=== PATIENT | female | born 1990 | race Caucasian/White ===

== ENCOUNTER 2024-07-21 17:56 | Emergency (ER) | payer OTHER, SELFPAY ==
[2024-07-21 18:06] VITALS: BP 109/91; PULSE 77; RESP 16; TEMP 36.8; O2SAT 100
--- NOTE | 2024-07-21 18:06 | ED_ITS ---
HPI - Ear Problem General Chief complaint: Ear Stated complaint: Right Ear Pain Time Seen by Provider: 07/21/24 18:31 Source: patient, RN notes reviewed and old records reviewed Mode of arrival: ambulatory Limitations: no limitations History of Present Illness HPI Narrative: 34-year-old female who presents to [facility] with complaints of right ear pain which started 2 days ago and also some sinus pressure with drainage for the past 4 days which she assumed was allergies. Patient report that she has been taking Mucinex and also some Tylenol for her ear pain. MD Complaint: ear pain and other (sinus drainage and pressure) Location: right ear Duration: constant Severity: moderate Discharge from ear: Reports no Treatment prior to arrival: other (mucinex and Tylenol) Related Data Home Medications ?Medication ?Instructions ?Recorded ?Confirmed ?Last Taken ?Type buspirone 15 mg tablet mg 07/21/24 Unknown History semaglutide 07/21/24 Unknown History venlafaxine 150 mg mg PO 07/21/24 Unknown History capsule,extended release 24 hr Allergies Allergy/AdvReac Type Severity Reaction Status Date / Time Penicillins Allergy Intermediate Hives Verified 07/21/24 18:08 Review of Systems Review of Systems: CONSTITUTIONAL: Denies malaise, chills, sweats, or fever. EYES: Denies visual changes, redness, or discharge. ENT: Reports rhinorrhea, congestion, sinus pressure, right otalgia and no sore throat. CARDIOVASCULAR: Denies chest pain, palpitations, or edema. RESPIRATORY: Reports occasional cough.? Denies dyspnea. GASTROINTESTINAL: Denies abdominal pain, nausea, vomiting, diarrhea SKIN: Denies rash or itching. MUSCULOSKELETAL: Denies myalgia. NEUROLOGIC: Denies headache. All systems reviewed & are unremarkable except as noted in HPI and below [facility] Past Medical History Medical History (Updated 07/22/24 @ 15:47 by Merlene Hatch NP) Anxiety Seasonal allergies Ear infection Social History Social History (Updated 07/22/24 @ 15:44 by Merlene Hatch NP) Smoking status: Former smoker Additional smoking assessment comments: Quit 2 years ago Alcohol intake: current Alcohol use details: social Substance use type: does not use Living arrangements: with family Gender identity (if verbalized by the patient): Female Comments At time of signature, agree with nursing past medical, surgical, social and family history. There is no relevant family history pertinent to the presenting complaint Exam Narrative: GENERAL: Well-appearing, well-nourished, and in no acute distress. HEAD: Normocephalic EYES: PERRLA, conjunctivae clear ENT: Nares clear, turbinates edematous and erythematous, clear discharge some sinus pressure,. Mucous membranes moist Right TM red and bulging, Left. TM dorothy y hoffmann with dull light reflex bilaterally; no tragal tenderness. Oropharynx erythematous without lesions. Tonsils not enlarged and without exudate, no drooling, no hoarseness, no trismus, uvula midline. NECK: Supple. No lymphadenopathy CHEST: Clear to auscultation, breath sounds equal. No wheezing, rhonchi, rales, or stridor. No respiratory distress, speaks in full sentences. SAO2 100% on room air HEART: Regular rate and rhythm. No murmur heard. SKIN: Warm, dry, no rash. NEURO: Alert and oriented x3. PSYCH: Normal mood and affect Course Course Emergency Course: Patient is aware of diagnosis, understands and agrees to treatment plan.? Anticipatory guidance given.? Patient agrees to follow-up as directed and is aware of reasons to seek care at the emergency department. Portions of this record may have been created with voice recognition software Level of Care: Express Care Visit Vital Signs Vital signs: Vital Signs Temperature 36.8 C 07/21/24 18:06 Pulse Rate 77 07/21/24 18:06 Respiratory Rate 16 07/21/24 18:06 Blood Pressure 109/91 H 07/21/24 18:06 Pulse Oximetry 100 07/21/24 18:06 Oxygen Delivery Room Air 07/21/24 18:06 Temperature 36.8 C 07/21/24 18:06 Pulse Rate 77 07/21/24 18:06 Respiratory Rate 16 07/21/24 18:06 Blood Pressure 109/91 H 07/21/24 18:06 Pulse Oximetry 100 07/21/24 18:06 Oxygen Delivery Room Air 07/21/24 18:06 Reviewed Medical Decision Making Differential Diagnosis Differential Diagnosis: URI, otitis media, allergic rhinitis, sinusitis Medical Records Medical records reviewed: Yes I reviewed the external patient's medical records. Vital Signs Vital Signs: Vital Signs Temperature 36.8 C 07/21/24 18:06 Pulse Rate 77 07/21/24 18:06 Respiratory Rate 16 07/21/24 18:06 Blood Pressure 109/91 H 07/21/24 18:06 Pulse Oximetry 100 07/21/24 18:06 Oxygen Delivery Room Air 07/21/24 18:06 Temperature 36.8 C 07/21/24 18:06 Pulse Rate 77 07/21/24 18:06 Respiratory Rate 16 07/21/24 18:06 Blood Pressure 109/91 H 07/21/24 18:06 Pulse Oximetry 100 07/21/24 18:06 Oxygen Delivery Room Air 07/21/24 18:06 reviewed Critical Care Time Critical Care Time Critical Care Time: No Discharge Plan Discharge Clinical Impression: Otitis media Qualifiers: Otitis media type: serous Chronicity: acute Laterality: right Recurrence: not specified as recurrent Qualified Code(s): H65.01 - Acute serous otitis media, right ear Patient Disposition: Home Condition: Stable Instructions: Antibiotic Form, Ear Infection (GEN) Additional Instructions: Increase fluids especially juices and water Agsb-[id number] cough and cold medicine of your choice for your symptoms Zyrtec Claritin or Thelma daily Tylenol or ibuprofen for any fever pain Recommend decongestant daily heat to the face 20-30 minutes 4-6 times a day for pain Salt water gargles, throat lozenges or throat sprays as desired Antibiotic as directed--finished the medication If your symptoms persist, change or worsen significantly before you can contact your personal physician then please, without delay, go to the emergency depart ment for further evaluation. Follow-up with PCP in 7-10 days or sooner if needed Patient Language: Mongolian Prescriptions: New azithromycin 250 mg tablet See Rx Instructions .ROUTE .COMPLEX Qty: 6 0RF Rx Instructions: For 250 mg dose pack: take 500 mg today (day 1), then 250 mg for 4 days (days 2-5) No Action venlafaxine 150 mg capsule,extended release 24hr PO buspirone 15 mg tablet semaglutide Follow-up/Referrals: PHYSICIAN,GLASS TUBE BENDER [Primary Care Provider] - Time of Disposition: 18:43 Quality [place] Coma Scale Eyes: Open Verbal: Oriented and Alert Motor: Follows Commands Matt Coma Total Score: 15
--- OUTSIDE RECORDS SUMMARY | 2024-07-21 18:25 | XMS_ITS ---
Author Organization [facility] Address [address] [place] [address] Care Team Providers Care Lens Matcher Name Role Phone Lenore Gustafson Primary Care Provider REASON FOR VISIT PHA Draw Encounters Encounter Location Date Provider Diagnosis Paco Lopez [address] [place] [address] 10/31/2023 Lenore Gustafson Plan Of Treatment Next Appt Details Provider Name:Harriett Cochran, 07/22/2024 08:30:00 AM, [address], [place], [address], Progress Notes * PIERO BARRIOS MDOB:[birth year] (34 yo F)Acc No.[id number]:10/31/2023 PHA Draw Note Patient: PIERO LOCO Provider: Willie Gustafson DO :1990 A ge:33 Y S ex:Female Date:10/31/2023 External Visit ID:[id number] Address:[address] [place] [address] [id number] Subjective: * Chief Complaints: * 1 . PHA Draw. * Medical History: Objective: * Vitals: Assessment: Plan: * Treatment: * * Electronic signature of Shanell Gustafson DO on 07/21/2024 at 06:24 PM CDT Sign off status: Pending * Provider: Willie Gustafson DO Date: 0 10/31/2023 Generated for Michela null/Temo/Ashleysmitting on: 0 07/21/2024 06:24 PM CDT
--- OUTSIDE RECORDS SUMMARY | 2024-07-21 18:25 | XMS_ITS | Clinical Summary ---
Author Organization [facility] Address [address] [place] [address] Care Team Providers Care Safety Glass Installer Name Role Phone Fred Moon DO Primary Care Provide r Source Comments [facility],non-owned Affiliates and Associated Physician Practices is amultiple site organization consisting of ambulatory clinics and hospital sitesin [place], [place], [place] and [place]. This disclosure is being madepursuant to the Care Everywhere program and may not contain all information available regarding this patient. Last updated 17.[facility] [employer] Allergies Active Allergy Reactions Criticality Noted Date Comments Penicillins Urticaria Medium 11/04/2016 Medications * Be aware that medications may not be up to date on this document. Alwaysverify current medications with the patient. spironolactone (ALDACTONE) 50 MG tablet Take 50 mg by mouth once daily 03/27/2018 Active fluticasone propionate (FLONASE) 50 MCG/ACT nasal spray [place] 2 sprays into the nose once daily Active azithromycin (ZITHROMAX) 250 MG tablet Take two tablets on day one then one tablet days two through five. 6 tablet 09/05/2018 Active Active Problems Problem Noted Date Diagnosed Date LISA III (cervical intraepith elial neoplasia grade III) with severe dysplasia 09/04/2017 Overview (09/05/2018): Overview: ECC positive for dysplasia High grade squamous intraepithelial cervical dys plasia 08/29/2017 Low grade squamous intraepit h lesion on cytologic smear cervix (lgsil) 06/25/2017 Vasovagal episode 11/10/2016 HELEN (generalized anxiety disorder) 11/10/2016 Borderline personality disorder 11/10/2016 Social History Tobacco Use Types Packs/Day Years Used Date Smoking Tobacco: Never Assessed Comments No Sex and Gender Information Value Date Recorded Sex Assigned at Not on file Legal Sex Female 6:58 PM CDT Gender Identity Not on file Sexual Orientation Not on file Last Filed Vital Signs Vital Sign Reading Time Taken Comments Blood Pressure 107/80 09/05/2018 7:28 PM CDT Pulse 75 09/05/2018 7:28 PM CDT Temperature 36.6 C (97.9 F) 09/05/2018 7:28 PM CDT Respiratory Rate 18 09/05/2018 7:28 PM CDT Oxygen Saturation 98% 09/05/2018 7:28 PM CDT Inhaled Oxygen Concentration - - Weight 80.7 kg (178 lb) 09/05/2018 7:28 PM CDT Height 157.5 cm (5' 2 ) 09/05/2018 7:28 PM CDT Body Mass Index 32.56 09/05/2018 7:28 PM CDT Plan of Treatment Health Maintenance Due Date Last Done Comments HIV SCREENING 06/15/2003 HEPATITIS C SCREENING 06/10/2006 DTAP/TDAP/TD VACCINES (1 - Tdap) 06/15/2007 HEPATITIS B VACCINE (1 of 3 - 19+ 3-dose series) 06/15/2007 COVID-19 VACCINE (1 - 2023-2 5 season) 2023 DEPRESSION SCREENING 04/02/2024 INFLUENZA VACCINE (Season Ended) 2024 ZOSTER VACCINE (1 of 2) 2038 HIB VACCINE Aged Out No longer eligi ble based on patient's age to complete this topic HPV VACCINE Aged Out No longer eligi ble based on patient's age to complete this topic MENINGOCOCCAL (Group B) VACC INE SHARED DECISION-MAKING Aged Out No longer eligibl e based on patient's age to complete this topic MENINGOCOCCAL GROUPS A/C/Y/W VACCINE Aged Out No longer eligible b ased on patient's age to complete this topic PNEUMOCOCCAL VACCINE Aged Out No long er eligible based on patient's age to complete this topic Insurance [employer] Care Teams Safety Glass Installer Relationship Specialty [place] [address] [place] [address] [place] [id number] PCP - General Family Medicine 09/05/18
--- OUTSIDE RECORDS SUMMARY | 2024-07-21 18:25 | XMS_ITS ---
Author Organization [facility] Address [address] [place] [address] Care Team Providers Care Pool Lifeguard Name Role Phone Lenore Gustafson Primary Care Provider REASON FOR VISIT PHA Draw Encounters Encounter Location Date Provider Diagnosis Paco Lopez [address] [place] [address] 11/06/2023 Lenore Gustafson Plan Of Treatment Next Appt Details Provider Name:Harriett Cochran, 07/22/2024 08:30:00 AM, [address], [place], [address], Progress Notes * PIERO BARRIOS MDOB:[birth year] (34 yo F)Acc No.[id number]:11/06/2023 PHA Draw Note Patient: PIERO LOCO Provider: Willie Gustafson DO :1990 A ge:33 Y S ex:Female Date:11/06/2023 External Visit ID:[id number] Address:[address] [place] [address] [facility] Subjective: * Chief Complaints: * 1 . PHA Draw. * Medical History: Objective: * Vitals: Assessment: Plan: * Treatment: * * Electronic signature of Shanell Gustafson DO on 07/21/2024 at 06:25 PM CDT Sign off status: Pending * Provider: Willie Gustafson DO Date: 0 11/06/2023 Generated for Michela null/Temo/Ashleysmitting on: 0 07/21/2024 06:25 PM CDT
--- OUTSIDE RECORDS SUMMARY | 2024-07-21 18:25 | XMS_ITS | Encounter Summary ---
Author Organization [facility] Address [address] [place] [address] Care Team Providers Care Chemical Handler Name Role Phone Unavailable Primary Care Provider Unavailabl e Prior Encounters Date Type Department Care Team Description 04/21/2019 Converted 13x Documents [facility] [address] [place] [address] <No scans attached> Plan of Treatment Not on file Visit Diagnoses Not on file
--- OUTSIDE RECORDS SUMMARY | 2024-07-21 18:25 | XMS_ITS | Referral Summary ---
Author Organization [address] Address [address] [place] [address] Care Team Providers Care Shrub Grower Name Role Phone Unavailable Primary Care Provider Unavailabl e Allergies Active Allergy Reactions Criticality Noted Date Comments Penicillins Hives,Itching,Urticaria High 10/22/2004 Medications spironolactone (ALDACTONE) 50 mg tablet 3 Active buPROPion XL (WELLBUTRIN XL) 150 mg 24 hr tablet Take 1 tablet (150 mg total) by mouth every morning 3 Active busPIRone (BUSPAR) 5 mg tablet Take 1 tablet (5 mg total) by mouth 2 (two) times a day 3 Active fluticasone propionate (FLONASE) 50 mcg/actuation nasal spray Administer 2 sprays into affected nostril(s) daily Active Estarylla 0.25-35 mg-mcg per tablet Take 1 tablet by mouth daily 3 Active Active Problems Problem Noted Date Diagnosed Date LISA III (cervical intraepith elial neoplasia grade III) with severe dysplasia 09/04/2017 08/22/2022 Overview (08/22/2022): Overview: ECC positive for dysplasia ECC positive for dysplasia Low grade squamous intraepit h lesion on cytologic smear cervix (lgsil) 06/25/2017 08/22/2022 Borderline personality disorder 11/10/2016 08/22/2022 HELEN (generalized anxiety disorder) 11/10/2016 08/22/2022 Vasovagal episode 11/10/2016 08/22/2022 Social History Tobacco Use Types Packs/Day Years Used Date Smoking Tobacco: Never Assessed Personal Safety Answer Date Recorded Getting School Help Needed Not on file 06/02 Comments Unknown Sex and Gender Information Value Date Recorded Sex Assigned at Not on file 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
--- OUTSIDE RECORDS SUMMARY | 2024-07-21 18:25 | XMS_ITS | Clinical Summary ---
Author Organization [facility] Address [address] [place] [address] Care Team Providers Care Chemist Biological Name Role Phone Unavailable Primary Care Provider Unavailabl e Social History Tobacco Use Types Packs/Day Years Used Date Smoking Tobacco: Never Assessed Comments Unknown Sex and Gender Information Value Date Recorded Sex Assigned at Not on file Legal Sex Female 12:53 AM PST Gender Identity Not on file Sexual Orientation Not on file Plan of Treatment Not on file
--- OUTSIDE RECORDS SUMMARY | 2024-07-21 18:25 | XMS_ITS | Patient Health Record ---
Author Organization [facility] Address [address] [address] [place] [address] Care Team Providers Care Research Professional Name Role Phone Forrest Gustafsonl Primary Care Provider Allergies Allergen (clinical drug ingredient) Drug/Non Drug Allergy documented on EMR Reaction Allergy Type Onset Date Status Penicillin hives Drug Allergy Active Reason For Referral No Information Medications Medication SIG (Take, Route, Fr equency, Duration) Notes Start Date End Date Status Adderall 20 MG 1 tablet Orally once a day Active Venlafaxine HCl 75 MG 1 tablet with food Orally Once a day Active Social History Tobacco Use: Social History Observation Description Date Details (start date - stop date) Never Smoker NA - NA Tobacco Control Question Answer Notes Tobacco use: Nonsmoker Problems Problem Type SNOMED Code ICD Code Onset Dates Problem Status W/U Status Risk Notes Problem 41971765 Generalized anxiety disorder (F41.1) Active confirmed Problem 229312362 Attention deficit disorder (ADD) in adult (F98.8) Active confirmed Vital Signs Heart Rate 95 /min 09/05/2023 Temperature 98.8 degrees Fahrenheit 09/05/2023 Respiratory Rate 16 /min 09/05/2023 Height-cm 156.85 cm 09/05/2023 Oximetry 96 % 09/05/2023 Blood pressure diastolic 94 mm Hg 09/05/2023 Weight-kg 81.56 kg 09/05/2023 Height 61.75 in 09/05/2023 Blood pressure systolic 129 mm Hg 09/05/2023 Weight 179.8 lbs 09/05/2023 BMI 33.15 kg/m2 09/05/2023 Encounters Encounter Location Date Provider Diagnosis [facility] [address] [place] [address] 09/05/2023 Lenore Gustafson Mass of upper outer quadrant of left breast N63.21 ; Physical exam Z00.00 ; Generalized anxiety disorder F41.1 and Attention deficit disorder (ADD) in adult F98.8 Assessments Encounter Date Diagnosis (ICD Code) Assessment Notes Treatment Notes Treatment Clinical Notes Section Notes 09/05/2023 Physical exam (ICD-10 - Z00.00) PHA advised 09/05/2023 Mass of upper outer quadrant of left breast (ICD-10 - N63.21) Discussed that this is likely benign fibrocystic change but should be evaluated with imaging. Schedule with [facility] where she had her previous study for comparison. 09/05/2023 Generalized anxiety disorder (ICD-10 - F41.1) 09/05/2023 Attention deficit disorder (ADD) in adult (ICD-10 - F98.8) Plan Of Treatment Pending Test Test Name Order Date Mammogram : Screening, Bilateral 024 Mammogram : Diagnostic, Unilateral 09/04 Next Appt Details Provider Name:Harriett Cochran, 07/22/2024 08:30:00 AM, [address] [facility] [address], [place], [address], Insurance Providers Payer Name Payer Address Payer Phone Subscriber Number Group Number Insured Name Patient Relationship to Insured Coverage Start Date Coverage End Date SSD [employer] PPO [address] [place] [address] [id number] PIERO BARRIOS Self - patient is the insured 3 SSD A[employer] PPO [address] [place] [address] [id number] PIERO BARRIOS Self - patient is the insured 3 3 Medical (General) History Medical History History ICD Code HISTORY: Anxiety HISTORY: Depression Surgical History Surgery Date(Month/Year) [facility] 2003
--- OUTSIDE RECORDS SUMMARY | 2024-07-21 18:25 | XMS_ITS ---
Author Organization [facility] Address [address] [place] [address] Care Team Providers Care Grinding Supervisor Name Role Phone Lenore Gustafson Primary Care Provider [phone] REASON FOR VISIT PHA Draw Encounters Encounter Location Date Provider Diagnosis Paco Lopez [address] [place] [address] 11/06/2023 Lenore Gustafson Plan Of Treatment Next Appt Details Provider Name:Harriett Cochran, 07/22/2024 08:30:00 AM, [address], [place], [address], Progress Notes * PIERO BARRIOS MDOB:[birth year] (34 yo F)Acc No.[id number]:11/06/2023 PHA Draw Note Patient: PIERO LOCO Provider: Willie Gustafson DO :1990 A ge:33 Y S ex:Female Date:11/06/2023 External Visit ID:[id number] Address:[address] [place] [address] [facility] Subjective: * Chief Complaints: * 1 . PHA Draw. * Medical History: Objective: * Vitals: Assessment: Plan: * Treatment: * * Electronic signature of Shanell Gustafson DO on 07/21/2024 at 06:25 PM CDT Sign off status: Pending * Provider: Willie Gustafson DO Date: 0 11/06/2023 Generated for Michela null/Temo/Ashleysmitting on: 0 07/21/2024 06:25 PM CDT
--- OUTSIDE RECORDS SUMMARY | 2024-07-21 18:25 | XMS_ITS | Clinical Summary ---
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 Gender Identity Not on file Sexual Orientation Not on file Plan of Treatment Health Maintenance Due Date Last Done Comments Cervical Cancer Screening 1988 Depression Screening 1988 Hepatitis C Screening 1988 DTaP/Tdap/Td Vaccine (1 - Tdap) 06/15/1999 Varicella Vaccines (1 of 2 - 13+ 2-dose series) 2001 Hepatitis B Screening 2006 Regular Well Visit/Exam 18-64 2006 Covid-19 Vaccine (2023-2 5 season) 2023 03/03/2021, 06/10/2020, 05/13/2020 Influenza Vaccine (#1) 2023 9, 01/10/2016, 12/28/2014 HPV Vaccines Aged Out No longer eligi ble based on patient's age to complete this topic Pneumococcal vaccine <65 Aged Out No longer eligible based on patient's age to complete this topic [facility]
== END 2024-07-21 18:48 | disposition home or self-care (01) ==
PROVIDERS: Emergency Provider Registered Nurse
DX: H65.01 Acute serous otitis media, right ear (principal); Z87.891 Personal history of nicotine dependence
CPT/HCPCS: 99213; G0463

== ENCOUNTER 2024-11-03 08:48 | Emergency (ER) | payer OTHER, SELFPAY ==
[2024-11-03 08:56] VITALS: BP 102/82; PULSE 105; RESP 20; TEMP 37.4; O2SAT 98
--- OUTSIDE RECORDS SUMMARY | 2024-11-03 08:56 | XMS_ITS | Referral Summary ---
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
--- OUTSIDE RECORDS SUMMARY | 2024-11-03 08:56 | XMS_ITS | Clinical Summary ---
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 Gender Identity Not on file Sexual Orientation Not on file Plan of Treatment Health Maintenance Due Date Last Done Comments Cervical Cancer Screening 1988 Depression Screening 1988 Hepatitis C Screening 1988 DTaP/Tdap/Td Vaccine (1 - Tdap) 06/15/1999 Varicella Vaccines (1 of 2 - 13+ 2-dose series) 2001 Hepatitis B Screening 2006 Regular Well Visit/Exam 18-64 2006 HPV Vaccines (1 - 3-dose SCD M series) 06/15/2015 Covid-19 Vaccine (4 - 2023-2 5 season) 2023 03/03/2021, 06/10/2020, 05/13/2020 Influenza Vaccine (#1) 2024 9, 01/10/2016, 12/28/2014 Pneumococcal vaccine <65 Aged Out No longer eligible based on patient's age to complete this topic Insurance [facility]
--- OUTSIDE RECORDS SUMMARY | 2024-11-03 08:56 | XMS_ITS | Patient Health Record ---
Author Organization [facility] Address [address] [place] [address] [address] [place] [address] Care Team Providers Care Tool Marker Name Role Phone Lenoer Gustafson Primary Care Provider Harriett Cochran Unavailable [phone] Allergies Allergen (clinical drug ingredient) Drug/Non Drug [...] Problem Status W/U Status Risk Notes Problem [id number] Generalized anxiety disorder (F41.1) Active confirmed Problem 399625611 Attention deficit disorder (ADD) in adult (F98.8) Active confirmed Plan Of Treatment No Information Insurance Providers Payer Name Payer Address Payer Phone Subscriber Number Group Number Insured Name Patient Relationship to Insured Coverage Start Date Coverage End Date SSD [employer] PPO [address] [place] [address] [id number] PIERO BARRIOS Self - patient is the insured 3 SSD [employer] PPO [address] [place] [address] [id number] DENISPIERO GARCIA Self - patient is the insured 3 3 Medical (General) History Medical History History ICD Code HISTORY: Anxiety HISTORY: Depression Surgical History Surgery Date(Month/Year) Gallbladder 2004
--- OUTSIDE RECORDS SUMMARY | 2024-11-03 08:57 | XMS_ITS ---
Author Organization [facility] Address [address] [place] [address] Care Team Providers Care Software Engineer Developer Name Role Phone Lenore Gustafson Primary Care Provider Harriett Cochran [phone] REASON FOR VISIT Ear Encounters Encounter Location Date Provider Diagnosis Paco Lopez [address] [facility] [address] [place] [address] 07/22/2024 Harriett Cochran Plan Of Treatment No Information Progress Notes * PIERO BARRIOS MDOB:[birth year] (34 yo F)Acc No.[id number]:07/22/2024 Progress Note - Acute Patient: Nuris GENTILE PIERO Sanjuana Provider: Willie Cochran MD :1990 A ge:34 Y S ex:Female Date:07/22/2024 External Visit ID:[id number] Address:[address] [place] [address] [address] [facility] Pcp:Lenore Gustafson Subjective: * Chief Complaints: * 1 . Ear. * Medical History: Objective: * Vitals: Assessment: Plan: * Treatment: * * Electronic signature of Harriett Cochran MD on 11/03/2024 at 08:56 AM CDT Sign off status: Pending * Provider: Willie Cochran MD Date: 07/22/2024 Generated for Printi ng/Faxing/eTransmitting on: 0 11/03/2024 08:56 AM CDT
--- OUTSIDE RECORDS SUMMARY | 2024-11-03 08:57 | XMS_ITS ---
Author Organization [facility] Address [address] [facility] [address] [place] [address] Care Team Providers Care Government Gauger Name Role Phone Lenore Gustafson Primary Care Provider REASON FOR VISIT PHA Draw Encounters Encounter Location Date Provider Diagnosis Paco Lopez [address] [facility] [address] [place] [address] 11/06/2023 Lenore Gustafson Plan Of Treatment No Information Progress Notes * PIERO BARRIOS MDOB:[birth year] (34 yo F)Acc No.[id number]:11/06/2023 PHA Draw Note Patient: Nuris GENTILE PIERO Sanjuana Provider: Willie Gustafson DO :1990 A ge:33 Y S ex:Female Date:11/06/2023 External Visit ID:[id number] Address:[facility] [address] [facility] Subjective: * Chief Complaints: * 1 . PHA Draw. * Medical History: Objective: * Vitals: Assessment: Plan: * Treatment: * * Electronic signature of Shanell Gustafson DO on 11/03/2024 at 08:56 AM CDT Sign off status: Pending * Provider: Willie Gustafson DO Date: 11/06/2023 Generated for Michela null/Temo/eTmichiitting on: 11/03/2024 08:56 AM CDT
--- OUTSIDE RECORDS SUMMARY | 2024-11-03 08:57 | XMS_ITS | Clinical Summary ---
Author Organization [facility] Address [address] [facility] [place] [address] Care Team Providers Care Top Cleaner Name Role Phone Fred Moon DO Primary Care Provide r Source Comments [facility],non-owned Affiliates and Associated Physician Practices is amultiple site organization consisting of ambulatory clinics and hospital sitesin [place], [place] and [place]. This disclosure is being madepursuant to the Care Everywhere program and may not contain all information available regarding this patient. Last updated 17.[facility] [employer] Allergies Active Allergy Reactions Criticality Noted Date Comments Penicillins Urticaria Medium 11/04/2016 Medications * Be aware that medications may not be up to date on this document. Alwaysverify current medications with the patient. spironolactone (ALDACTONE) 50 MG tablet Take 50 mg by mouth once daily 03/27/2018 Active fluticasone propionate (FLONASE) 50 MCG/ACT nasal spray [place] 2 sprays into the nose once daily [...] 7:28 PM CDT Height 157.5 cm (5' 2) 09/05/2018 7:28 PM CDT Body Mass Index 32.56 09/05/2018 7:28 PM CDT Plan of Treatment Health Maintenance Due Date Last Done Comments HIV SCREENING 06/15/2003 HEPATITIS C SCREENING 06/10/2006 DTAP/TDAP/TD VACCINES (1 - Tdap) 06/15/2007 HEPATITIS B VACCINE (1 of 3 - 19+ 3-dose series) 06/15/2007 HPV VACCINE (1 - 3-dose SCDM series) 06/15/2015 COVID-19 VACCINE (1 - 2023-2 5 season) 2023 DEPRESSION SCREENING 04/02/2024 INFLUENZA VACCINE (#1) 2024 ZOSTER VACCINE (1 of 2) 2038 [...] patient's age to complete this topic Insurance [id number] [place] [id number] [employer] Care Teams Top Cleaner Relationship Specialty Start Date End Date Fred Moon DO [address] [place] [address] [place] [phone] PCP - General Family Medicine 09/05/18
--- OUTSIDE RECORDS SUMMARY | 2024-11-03 08:57 | XMS_ITS ---
Author Organization [facility] Address [address] [facility] [address] [place] [address] Care Team Providers Care Metal Machinist Name Role Phone Lenore Gustafson Primary Care Provider REASON FOR VISIT PHA Draw Encounters Encounter Location Date Provider Diagnosis Paco Lopez [address] [facility] [address] [place] [address] 11/06/2023 Lenore Gustafson Plan Of Treatment No Information Progress Notes * PIERO BARRIOS MDOB:[birth year] (34 yo F)Acc No.[id number]:11/06/2023 PHA Draw Note Patient: Nuris GENTILE PIERO Sanjuana Provider: Willie Gustafson DO :1990 A ge:33 Y S ex:Female Date:11/06/2023 External Visit ID:[id number] Address:[facility] [address] [facility] Subjective: * Chief Complaints: * 1 . PHA Draw. * Medical History: Objective: * Vitals: Assessment: Plan: * Treatment: * * Electronic signature of Shanell Gustafson DO on 11/03/2024 at 08:56 AM CDT Sign off status: Pending * Provider: Willie Gustafson DO Date: 11/06/2023 Generated for Michela null/Temo/eTmichiitting on: 11/03/2024 08:56 AM CDT
--- OUTSIDE RECORDS SUMMARY | 2024-11-03 08:57 | XMS_ITS | Encounter Summary ---
Author Organization [facility] Address [address] [place] [address] Care Team Providers Care Customs Compliance Specialist Name Role Phone Unavailable Primary Care Provider Unavailabl e Prior Encounters Date Type Department Care Team Description 04/21/2019 Converted 13x Documents [facility] [address] [facility] [place] [address] <No scans attached> Plan of Treatment Not on file Visit Diagnoses Not on file
--- OUTSIDE RECORDS SUMMARY | 2024-11-03 08:57 | XMS_ITS | Clinical Summary ---
Author Organization [facility] Address [address] [place] [address] Care Team Providers Care Automobile Travel Club Counselor Name Role Phone Unavailable Primary Care Provider [...]
--- NOTE | 2024-11-03 09:15 | ED_ITS ---
HPI - URI/Sore Throat General Chief Complaint: Upper Respiratory Infection Stated Complaint: throat Time Seen by Provider: 11/03/24 09:16 Source: patient and RN notes reviewed Mode of arrival: ambulatory Limitations: no limitations History of Present Illness HPI Narrative: 34-year-old female presents with concern for sore throat, cough for 2 days. Reports her son's daycare has strep and voul-hwwc-vpkpu going around. She reports she has been using DayQuil, NyQuil, Benadryl without relief. She denies fever, aches, chills, sweats. MD elicited complaint: sore throat Related Data Home Medications ?Medication ?Instructions ?Recorded ?Confirmed ?Last Taken ?Type buspirone 15 mg tablet mg 07/21/24 Unknown History semaglutide 07/21/24 Unknown History venlafaxine 150 mg mg PO 07/21/24 Unknown History capsule,extended release 24 hr Allergies Allergy/AdvReac Type Severity Reaction Status Date / Time Penicillins Allergy Intermediate Hives Verified 07/21/24 18:08 Review of Systems Review of Systems: CONSTITUTIONAL: Denies malaise, chills, sweats, or fever. EYES: Denies visual changes, redness, or discharge. ENT: Reports rhinorrhea, congestion, and sore throat. CARDIOVASCULAR: Denies chest pain, palpitations, or edema. RESPIRATORY: Reports cough. Denies dyspnea. GASTROINTESTINAL: Denies abdominal pain, nausea, vomiting, diarrhea SKIN: Denies rash or itching. MUSCULOSKELETAL: Denies myalgia. NEUROLOGIC: Denies headache. All systems reviewed & are unremarkable except as noted in HPI and below PMFSH Past Medical History Medical History (Updated 11/03/24 @ 09:21 by Crystal Hartmann NP) Anxiety Seasonal allergies Ear infection Social History Social History (Updated 07/22/24 @ 15:44 by Merlene Hatch NP) Smoking status: Former smoker Additional smoking assessment comments: Quit 2 years ago Alcohol intake: current Alcohol use details: social Substance use type: does not use Living arrangements: with family Gender identity (if verbalized by the patient): Female Comments At time of signature, agree with nursing past medical, surgical, social and family history. There is no relevant family history pertinent to the presenting complaint Exam Narrative: GENERAL: Well-appearing, well-nourished, and in no acute distress. HEAD: Normocephalic EYES: PERRLA, conjunctivae clear ENT: Nares clear. Mucous membranes moist. TM pearly hoffmann with dull light reflex bilaterally; no tragal tenderness. Oropharynx erythematous without lesions. Tonsils not enlarged and without exudate, no drooling, no hoarseness, no trismus, uvula midline. NECK: Supple. No lymphadenopathy CHEST: Clear to auscultation, breath sounds equal. No wheezing, rhonchi, rales, or stridor. No respiratory distress, speaks in full sentences. HEART: Regular rate and rhythm. No murmur heard. SKIN: Warm, dry, no rash. NEURO: Alert and oriented x3. PSYCH: Normal mood and affect Course Course Emergency Course: Patient is aware of diagnosis, understands and agrees to treatment plan. Anticipatory guidance given. Patient agrees to follow-up as directed and is aware of reasons to seek care at the emergency department. Portions of this record may have been created with voice recognition software Level of Care: Express Care Visit Vital Signs Vital signs: Vital Signs Temperature 99.3 F 11/03/24 08:56 Pulse Rate 105 H 11/03/24 08:56 Respiratory Rate 20 11/03/24 08:56 Blood Pressure 102/82 11/03/24 08:56 Pulse Oximetry 98 11/03/24 08:56 Oxygen Delivery Room Air 11/03/24 08:56 Temperature 99.3 F 11/03/24 08:56 Pulse Rate 105 H 11/03/24 08:56 Respiratory Rate 20 11/03/24 08:56 Blood Pressure 102/82 11/03/24 08:56 Pulse Oximetry 98 11/03/24 08:56 Oxygen Delivery Room Air 11/03/24 08:56 Reviewed. MDM - URI/Sore Throat MDM Narrative Medical decision making narrative: Differential diagnosis considered: Mariee virus, strep pharyngitis, allergic rhinitis, upper respiratory tract infection, sinusitis, rhinosinusitis, nasopharyngitis. viral pharyngitis, otitis media, otitis externa, pneumonia, bronchitis, viral cough syndrome, viral syndrome, and influenza. Exam findings show no acute concerns or changes; patient is non-toxic appearing and is in no distress. Patient is appropriate for outpatient treatment and follow-up. Lab Data Attestation: I reviewed the patient's lab results. Critical Care Time Critical Care Time Critical Care Time: No Discharge Plan Discharge Clinical Impression: Viral infection Patient Disposition: Home Condition: Stable Instructions: Viral Syndrome (ED) Additional Instructions: Your rapid strep swab was negative today at [facility]. A throat culture will be sent to the laboratory for further testing. If the test is positive, you will receive a phone call within 48 hours and an appropriate antibiotic will be initiated at that time. Your symptoms are likely due to a viral illness, which is not treated with antibiotics. Viral symptoms can be present for up to a few weeks. -Alternate Tylenol and Motrin per package directions for fever or pain. -Antihistamine medication such as Benadryl at night and Zyrtec during the day can help improve symptoms. -Eat and drink things that are easy to swallow, like tea or soup, or popsicles to suck on. -Oral rinses such as: Salt water gargles and/or may use topical anesthetic (eg. Chloraseptic spray) or lozenges to relieve dryness or throat pain). -Frequent hand washing or hand machine overhauler is one of the best ways to prevent spread of infection. -Follow up with primary care provider in 2-3 days if condition is not improving; or seek ER visit if you have trouble breathing, cannot drink enough fluids, have muffled voice, difficulty opening your mouth, or severe swelling. Patient Language: Romanian Prescriptions: New promethazine-DM 6.25-15 mg/5 mL syrup 5 ml PO Q4-6H PRN (Reason: cough) Qty: 120 0RF No Action venlafaxine 150 mg capsule,extended release 24hr PO buspirone 15 mg tablet semaglutide Follow-up/Referrals: PHYSICIAN NOT ON STAFF,NONSTAFF [Primary Care Provider] - Time of Disposition: 09:21
[2024-11-03 09:26] LABS: EDSTREPNEGPOS1 Negative (Negative)
== END 2024-11-03 09:27 | disposition home or self-care (01) ==
PROVIDERS: Emergency Provider Nurse Practitioner
DX: B34.9 Viral infection, unspecified (principal); F41.9 Anxiety disorder, unspecified; Z87.891 Personal history of nicotine dependence
CPT/HCPCS: 87081; 87880; 99213; G0463

== ENCOUNTER 2024-11-04 08:10 | Emergency (ER) | payer OTHER, SELFPAY ==
--- NOTE | ~2024-11-04 | XR_ITS ---
EXAMINATION: XR chest 2V 11/04/2024 08:53 INDICATION: Cough, shortness of breath fever PROCEDURE: 2 view chest COMPARISON: No prior studies for comparison. FINDINGS: The lungs are clear. The cardiomediastinal silhouette is within normal limits. There are no pleural effusions. There is no pneumothorax suspected. IMPRESSION: 1: NO ACUTE CARDIOPULMONARY DISEASE. Reviewed, dictated and finalized at location A.
--- OUTSIDE RECORDS SUMMARY | 2024-11-04 08:12 | XMS_ITS ---
Author Organization [facility] Address [address] [place] [address] Care Team Providers Care Schedule Announcer Name Role Phone Lenore Gustafson Primary Care Provider Harriett Cochran [phone] REASON FOR VISIT Ear Encounters Encounter Location Date Provider Diagnosis Paco Lopez [address] [facility] [address] [place] [address] 07/22/2024 Harriett Cochran Plan Of Treatment No Information Progress Notes * PIERO BARRIOS MDOB:[birth year] (34 yo F)Acc No.[id number]:07/22/2024 Progress Note - Acute Patient: Nuris GENTILE PIERO Sanjuana Provider: Willie Cochran MD :1990 A ge:34 Y S ex:Female Date:07/22/2024 External Visit ID:[id number] Address:[address] [place] [address] [address] [facility] Pcp:Lenore Gustafson Subjective: * Chief Complaints: * 1 . Ear. * Medical History: Objective: * Vitals: Assessment: Plan: * Treatment: * * Electronic signature of Harriett Cochran MD on 11/04/2024 at 08:12 AM CDT Sign off status: Pending * Provider: Willie Cochran MD Date: 07/22/2024 Generated for Printi ng/Faxing/eTransmitting on: 0 11/04/2024 08:12 AM CDT
--- OUTSIDE RECORDS SUMMARY | 2024-11-04 08:12 | XMS_ITS | Clinical Summary ---
Author Organization [facility] Address [address] [facility] [place] [address] Care Team Providers Care Truck Sales Representative Name Role Phone Fred Moon DO Primary Care Provide r Source Comments [facility],non-owned Affiliates and Associated Physician Practices is amultiple site organization consisting of ambulatory clinics and hospital sitesin [place], [place], [place] and [place]. This disclosure is being madepursuant to the Care Everywhere program and may not contain all information available regarding this patient. Last updated 17.[facility] [employer] Allergies Active Allergy Reactions Criticality Noted Date Comments Penicillins Urticaria Medium 11/04/2016 Medications * Be aware that medications may not be up to date on this document. Alwaysverify current medications with the patient. spironolactone (ALDACTONE) 50 MG tablet Take 50 mg by mouth once daily 03/27/2018 Active fluticasone propionate (FLONASE) 50 MCG/ACT nasal spray [place] 2 sprays into the nose once daily [...] complete this topic Insurance [employer] Care Teams Truck Sales Representative Relationship Specialty Start Date End Date Fred Moon DO [address] [place] [address] [place] [phone] PCP - General Family Medicine 09/05/18
--- OUTSIDE RECORDS SUMMARY | 2024-11-04 08:12 | XMS_ITS | Patient Health Record ---
Author Organization [facility] Address [address] [place] [address] [address] [facility] [address] [place] [address] Care Team Providers Care Pipe Line Inspector Name Role Phone Lenore Gustafson Primary Care Provider [phone] Harriett Cochran Unavailable [phone] Allergies Allergen (clinical drug ingredient) Drug/Non Drug [...] Problem Status W/U Status Risk Notes Problem 11452147 Generalized anxiety disorder (F41.1) Active confirmed Problem 409308132 Attention deficit disorder (ADD) in adult (F98.8) Active confirmed Plan Of Treatment No Information Insurance Providers Payer Name Payer Address Payer Phone Subscriber Number Group Number Insured Name Patient Relationship to Insured Coverage Start Date Coverage End Date SSD [employer] PPO [address] [place] [address] [id number] PIERO BARRIOS Self - patient is the insured 3 SSD [employer] PPO [address] [place] [address] [id number] DENISPIERO GARCIA Self - patient is the insured 3 3 Medical (General) History Medical History History ICD Code HISTORY: Anxiety HISTORY: Depression Surgical History Surgery Date(Month/Year) Gallbladder 2004
--- OUTSIDE RECORDS SUMMARY | 2024-11-04 08:12 | XMS_ITS ---
Author Organization [facility] Address [address] [place] [address] Care Team Providers Care Convenience Store Manager Name Role Phone Lenore Gustafson Primary Care Provider REASON FOR VISIT PHA Draw Encounters Encounter Location Date Provider Diagnosis Paco Lopez [address] [facility] [address] [place] [address] 11/06/2023 Lenore Gustafson Plan Of Treatment No Information Progress Notes * PIERO BARRIOS MDOB:[birth year] (34 yo F)Acc No.[id number]:11/06/2023 PHA Draw Note Patient: Nuris GENTILE PIERO Sanjuana Provider: Willie Gustafson DO :1990 A ge:33 Y S ex:Female Date:11/06/2023 External Visit ID:[id number] Address:[facility] [address] [facility] Subjective: * Chief Complaints: * 1 . PHA Draw. * Medical History: Objective: * Vitals: Assessment: Plan: * Treatment: * * Electronic signature of Shanell Gustafson DO on 11/04/2024 at 08:12 AM CDT Sign off status: Pending * Provider: Willie Gustafson DO Date: 11/06/2023 Generated for Michela null/Temo/eTmichiitting on: 11/04/2024 08:12 AM CDT
--- OUTSIDE RECORDS SUMMARY | 2024-11-04 08:12 | XMS_ITS | Referral Summary ---
Author Organization [address] Address [address] [place] [address] Care Team Providers Care Service Advisor Name Role Phone Unavailable Primary Care Provider [...] on file Legal Sex Female 11:11 AM TOOL TROUBLE SHOOTER Gender Identity Not on file Sexual Orientation Not on file Plan of Treatment Not on file Insurance [employer] Therapeutic HMO/POS [facility] HMO/PPO Address: [address] [address]
--- OUTSIDE RECORDS SUMMARY | 2024-11-04 08:12 | XMS_ITS | Clinical Summary ---
Author Organization [facility] Health Address [address] [place] [address] Care Team Providers Care Senior Brand Manager Name Role Phone Unavailable Primary Care Provider [...]
--- OUTSIDE RECORDS SUMMARY | 2024-11-04 08:12 | XMS_ITS | Encounter Summary ---
Author Organization [facility] Address [address] [place] [address] Care Team Providers Care It Telecom Technician Name Role Phone Unavailable Primary Care Provider Unavailabl e Prior Encounters Date Type Department Care Team Description 04/21/2019 Converted 13x Documents [facility] [address] [facility] [place] [address] <No scans attached> Plan of Treatment Not on file Visit Diagnoses Not on file
--- OUTSIDE RECORDS SUMMARY | 2024-11-04 08:12 | XMS_ITS | Clinical Summary ---
Author Organization [address] Address [address] [place] [address] Care Team Providers Care Restaurant Team Member Name Role Phone Unavailable Primary Care Provider [...] on file Legal Sex Female 11:11 AM JAVA XML DEVELOPER Gender Identity Not on file Sexual Orientation [...] patient's age to complete this topic [facility]
--- OUTSIDE RECORDS SUMMARY | 2024-11-04 08:13 | XMS_ITS ---
Author Organization [facility] Address [address] [facility] [address] [place] [address] Care Team Providers Care Crimping Machine Operator For Metal Name Role Phone Lenore Gustafson Primary Care Provider REASON FOR VISIT PHA Draw Encounters Encounter Location Date Provider Diagnosis Paco Lopez [address] [facility] [address] [place] [address] 11/06/2023 Lenore Gustafson Plan Of Treatment No Information Progress Notes * PIERO BARRIOS MDOB:[birth year] (34 yo F)Acc No.[id number]:11/06/2023 PHA Draw Note Patient: Nuris GENTILE PIERO Sanjuana Provider: Willie Gustafson DO :1990 A ge:33 Y S ex:Female Date:11/06/2023 External Visit ID:[id number] Address:[facility] [address] [facility] Subjective: * Chief Complaints: * 1 . PHA Draw. * Medical History: Objective: * Vitals: Assessment: Plan: * Treatment: * * Electronic signature of Shanell Gustafson DO on 11/04/2024 at 08:12 AM CDT Sign off status: Pending * Provider: Willie Gustafson DO Date: 11/06/2023 Generated for [place]a null/Temo/eTmichiitting on: 11/04/2024 08:12 AM CDT
[2024-11-04 08:16] VITALS: BP 105/76; PULSE 110; RESP 20; TEMP 38; O2SAT 99
--- NOTE | 2024-11-04 08:20 | ED.EAR ---
HPI - Ear Problem General Chief complaint: Upper Respiratory Infection Stated complaint: ears Time Seen by Provider: 11/04/24 08:20 Source: patient and RN notes reviewed Mode of arrival: ambulatory Limitations: no limitations History of Present Illness HPI Narrative: 34 y/o female presented for c/o sore throat, nasal congestion and drainage, and fatigue x3 days, and started with bilateral ear pain last night. Says right ear is worse than left. Endorses swimming often. Pt was seen here yesterday, tested negative for strep. Says she has been using an albuterol inhaler for 2 days for increased sob, as prescribed by pcp last week. Denies chest pain, n/v/d. Related Data Home Medications ?Medication ?Instructions ?Recorded ?Confirmed ?Last Taken ?Type semaglutide 07/21/24 Unknown History venlafaxine 150 mg mg PO 07/21/24 Unknown History capsule,extended release 24 hr albuterol sulfate 90 mcg/actuation inhalation 11/04/24 Unknown History aerosol inhaler Allergies Allergy/AdvReac Type Severity Reaction Status Date / Time Penicillins Allergy Intermediate Hives Verified 11/04/24 08:17 Review of Systems Review of Systems: CONSTITUTIONAL: Endorses malaise, body aches, chills, sweats, fever EYES: Denies visual changes, redness, or discharge ENT: Reports rhinorrhea, congestion, sinus pain, otalgia, sore throat CARDIOVASCULAR: Denies chest pain, palpitations, edema RESPIRATORY: Reports cough, post nasal drainage, dyspnea GASTROINTESTINAL: Denies abdominal pain, nausea, vomiting, diarrhea SKIN: Denies rash or itching NEUROLOGIC: Denies headache PMFSH Past Medical History Medical History Anxiety Seasonal allergies Ear infection Social History Social History Smoking status: Former smoker Additional smoking assessment comments: Quit 2 years ago Alcohol intake: current Alcohol use details: social Substance use type: does not use Living arrangements: with family Gender identity (if verbalized by the patient): Female Exam Narrative: GENERAL: mildly Ill-appearing, nontoxic no acute distress. EYES: conjunctivae clear ENT: Mucous membranes moist. Bilateral TMs erythematous, bulging and intact; canals with swelling and erythema, no drainage no tragal tenderness. Oropharynx not erythematous without tonsillar swelling, lesions or exudate, no drooling, no hoarseness, no trismus, uvula midline. No tripod positioning, muffled voice, soft palate or pharyngeal wall bulging NECK: Supple. No lymphadenopathy CHEST: Clear and diminished to auscultation, breath sounds equal. No wheezing, rhonchi, rales, or stridor. No respiratory distress, speaks in full sentences. HEART: Tachycardic and Regular SKIN: Warm, dry, no rash. NEURO: Alert and oriented x3. PSYCH: Normal mood and affect Course Course Emergency Course: Patient is aware of diagnosis, understands and agrees to treatment plan. Anticipatory guidance given. Patient agrees to follow-up as directed and is aware of reasons to seek care at the emergency department. Portions of this record may have been created with voice recognition software Level of Care: Express Care Visit Vital Signs Vital signs: Vital Signs Temperature 100.4 F H 11/04/24 08:16 Pulse Rate 110 H 11/04/24 08:16 Respiratory Rate 20 11/04/24 08:16 Blood Pressure 105/76 11/04/24 08:16 Pulse Oximetry 99 11/04/24 08:16 Oxygen Delivery Room Air 11/04/24 08:16 Temperature 100.4 F H 11/04/24 08:16 Pulse Rate 110 H 11/04/24 08:16 Respiratory Rate 20 11/04/24 08:16 Blood Pressure 105/76 11/04/24 08:16 Pulse Oximetry 99 11/04/24 08:16 Oxygen Delivery Room Air 11/04/24 08:16 reviewed Medical Decision Making MDM Narrative Medical decision making narrative: negative flu, COVID, and strep. Results of chest x-ray reviewed with patient.Reviewed RX. Discussed physical exam findings. Advised supportive measures and signs/symptoms to go to the ER. Pt is appropriate for outpt treatment and f/u. Differential Diagnosis Differential Diagnosis: Influenza, covid, sinusitis, OM, strep pharyngitis, URI Vital Signs Vital Signs: Vital Signs Temperature 100.4 F H 11/04/24 08:16 Pulse Rate 110 H 11/04/24 08:16 Respiratory Rate 20 11/04/24 08:16 Blood Pressure 105/76 11/04/24 08:16 Pulse Oximetry 99 11/04/24 08:16 Oxygen Delivery Room Air 11/04/24 08:16 Temperature 100.4 F H 11/04/24 08:16 Pulse Rate 110 H 11/04/24 08:16 Respiratory Rate 20 11/04/24 08:16 Blood Pressure 105/76 11/04/24 08:16 Pulse Oximetry 99 11/04/24 08:16 Oxygen Delivery Room Air 11/04/24 08:16 Lab Data Labs: Lab Results 11/04/24 Range/Units 08:26 POC Influenza A Ag Negative (Negative) POC Influenza B Ag Negative (Negative) POC SARS CoV-2 Ag Negative (Negative) POC Grp A Strep Screen Negative (Negative) Imaging Data Radiologist's impression: Patient: Andressa Negro : 1990 MR#: [id number] Age: 34 Acct:[id number] Loc: ADM Date: 11/04/24Attending Dr: EXAMINATION: XR chest 2V 11/04/2024 08:53 INDICATION: Cough, shortness of breath fever PROCEDURE: 2 view chest COMPARISON: No prior studies for comparison. FINDINGS: The lungs are clear. The cardiomediastinal silhouette is within normal limits. There are no pleural effusions. There is no pneumothorax suspected. IMPRESSION: 1: NO ACUTE CARDIOPULMONARY DISEASE. Discharge Plan Discharge Clinical Impression: Otitis media, Otitis externa, Bronchitis Patient Disposition: Home Condition: Stable Instructions: Antibiotic Form, Ear Infection (ED), Acute Bronchitis (ED) Additional Instructions: Take antibiotics as directed. Continue the previously prescribed albuterol inhaler Recommendations: antihistamine such as Benadryl, Zyrtec or Thelma for sinus congestion along with Flonase nasal spray, 1 spray in each nostril once daily until symptoms improve rest, push fluids, and increase humidity of the air at home. Soft foods, cool liquids, warm tea. Gargle with warm saltwater twice a day. Chloraseptic spray and throat lozenges. Tylenol 1000mg every 8 hours as needed to reduce fever, pain Please schedule a follow-up visit with your personal physician If your symptoms persist, change or worsen significantly, go to the emergency department for further evaluation. Patient Language: Tuvaluan Prescriptions: New benzonatate 200 mg capsule 200 mg PO TID PRN (Reason: cough) Qty: 20 0RF prednisone 20 mg tablet 40 mg PO DAILY 5 Days Qty: 10 0RF cefdinir 300 mg capsule 300 mg PO Q12H Qty: 14 0RF No Action albuterol sulfate 90 mcg/actuation HFA aerosol inhaler INHALATION venlafaxine 150 mg capsule,extended release 24hr PO semaglutide promethazine-DM 6.25-15 mg/5 mL syrup 5 ml PO Q4-6H PRN (Reason: cough) Qty: 120 0RF Follow-up/Referrals: PHYSICIAN NOT ON STAFF,NONSTAFF [Primary Care Provider] - Time of Disposition: 09:13
[2024-11-04 08:38] LABS: EDSTREPNEGPOS1 Negative (Negative)
[2024-11-04 08:45] LABS: EDCOVIDSCREEN Negative (Negative); EDINFLUASCREEN Negative (Negative); EDINFLUBSCREEN Negative (Negative)
== END 2024-11-04 09:15 | disposition home or self-care (01) ==
PROVIDERS: Emergency Provider Nurse Practitioner Family
DX: H66.93 Otitis media, unspecified, bilateral (principal); H60.93 Unspecified otitis externa, bilateral; J40 Bronchitis, not specified as acute or chronic; Z20.822 Contact with and (suspected) exposure to COVID-19; Z87.891 Personal history of nicotine dependence; F41.9 Anxiety disorder, unspecified
CPT/HCPCS: 71046; 87426; 87804; 87880; 99213; G0463